=== PATIENT | female | born 1955 | race Caucasian/White ===

== ENCOUNTER 2020-02-24 13:14 | Outpatient (CLI) | payer BC, SELFPAY ==
--- NOTE | ~2020-02-24 | US_ITS ---
EXAMINATION: US pelvic complete w TV EXAM DATE: 02/24/2020 14:15 INDICATION: Postmenopausal bleeding. TECHNIQUE: Pelvic transabdominal and transvaginal sonogram was performed. There are multiple graysca le and Doppler images available for interpretation. There is no prior study for comparison. FINDINGS: Uterus measures 8.1 x 5.3 x 4.3 cm, retroverted with suspicion of significantly thickened endometrium at 37 mm. Possible 1.3 cm fibroid posterior lower uterine segment, ill-defined boundary b etween it and the myometrium. There are nabothian cysts. There is no free pelvic fluid. Right adnexa: The ovary is not identified. There is no adnexal mass. Left adnexa: The ovary measures 2.2 x 2.5 x 2.9 cm, has 2 small cystic regions, largest measuring 1.8 cm. Ovarian vascular flow confirmed. IMPRESSION: Significantly thickened endometrium for postmenopausal status; differential diagnosis inc ludes hyperplasia and endometrial cancer. Recommend histologic correlation. Reviewed, dictated and finalized at location A. IMPRESSION: Significantly thickened endometrium for postmenopausal status; diff erential diagnosis includes hyperplasia and endometrial cancer. Recommend histo logic correlation.
== END 2020-02-24 13:15 | disposition home or self-care (01) ==
LOC: ANHIMG 13:17
PROVIDERS: PCP Internal Medicine; Visit Provider Obstetrics & Gynecology
DX: N95.0 Postmenopausal bleeding (principal); R93.89 Abnormal findings on diagnostic imaging of other specified body structures
CPT/HCPCS: 76830; 76856

== ENCOUNTER 2020-02-27 12:43 | Observation (INO) | payer BC, SELFPAY ==
[2020-02-27] VITALS (32 sets, daily range): BP systolic 103–141; BP diastolic 70–125; PULSE 69–165; RESP 14–24; TEMP 36.5–36.6; O2SAT 95–99; BMI 38.7; BMI 39.1
--- NOTE | ~2020-02-27 | XR_ITS ---
EXAMINATION: XR chest 2V DATE: 02/27/2020 13:40 INDICATION: Tachycardia. TECHNIQUE: Frontal and lateral views of the chest were obtained. COMPARISON: None. FINDINGS: Calcified bilateral lung nodules and calcified hilar and mediastinal lymph nodes are consis tent with old granulomatous disease. No pleural effusion or pneumothorax. The heart size is normal. T here are surgical clips in the abdomen. IMPRESSION: 1. No acute cardiopulmonary disease. Reviewed, dictated and finalized at location B.
--- NOTE | 2020-02-27 12:51 | ECG_ITS ---
Measurements Intervals [place] Rate: 163 P: MS: 0 QRS: -19 QRSD: 103 T: 92 QT: 265 QTc: 438 Interpretive Statements ATRIAL FIBRILLATION WITH RAPID VENTRICULAR RESPONSE DELAYED PRECORDIAL R/S TRANSITION VOLTAGE CRITERIA FOR LVH NONSPECIFIC ST & T-WAVE ABNORMALITY- HIGH LATERAL LEADS BASELINE ARTIFACT- V2 ABNORMAL ECG Electronically Signed On 02-27-2020 14:24:06 CDT by Antoni Gordon D.O.
--- NOTE | 2020-02-27 13:11 | ED.ARRPALP ---
HPI - Arrhythmia/Palpitations General Chief Complaint: Arrhythmia/Palpitations Stated Complaint: tachycardia Time Seen by Provider: 02/27/20 13:02 Source: RN notes reviewed History of Present Illness HPI narrative: Patient presents emergency department from home for rapid heart rate. Patient states he began to notice the symptoms last night that continued today. She states she felt like her heart was racing felt mildly shaky with the symptoms. She denies have any fevers or chills chest pain shortness of breath or any other symptoms. Denies any history of atrial fibrillation or any other cardiac history. Related Data Home Medications Medication Instructions Recorded Confirmed cholecalciferol (vitamin D3) 125 5,000 unit PO DAILY 05/06/19 mcg (5,000 unit) capsule cinnamon bark 500 mg capsule 500 mg PO DAILY 05/06/19 multivitamin 1 tablet PO DAILY 05/06/19 omega 3-avs-pla-fish oil 1,000 mg 1 cap PO DAILY 05/06/19 (120 mg-180 mg) capsule turmeric root extract 500 mg 500 mg PO DAILY 05/06/19 capsule Allergies Allergy/AdvReac Type Severity Reaction Status Date / Time morphine Allergy Mild Unknown Verified 02/27/20 13:08 Tedtovv-Wxc-Rke Reductase Allergy Mild Unknown Verified 02/27/20 13:08 Inhibitor Review of Systems Review of Systems: Narrative: Gen.: Denies fevers or chills ENT: Denies congestion Respiratory: Denies shortness of breath or cough CV: See HPI GI: Denies abdominal pain nausea, emesis or diarrhea Musculoskeletal: Denies back pain or muscle pain Neuro: Denies numbness, tingling, weakness or focal weakness Skin: Denies rash Except as documented, all other systems reviewed and negative [facility] Past Medical History Medical History Hyperlipidemia Knee pain Social History Social History Smoking status: Never smoker Second hand tobacco smoke exposure: No Alcohol intake: current Gender identity (if verbalized by the patient): Female Exam Narrative: Exam Narrative: APPEARANCE: No acute distress, nontoxic, resting in bed EYES: EOMI HEENT: Normocephalic, atraumatic, OMM RESPIRATORY: No respiratory distress Clear to auscultation bilaterally with no rhonchi wheezing or rales. CARDIOVASCULAR: Tachycardic and irregular without murmurs rubs or gallops. ABDOMINAL: Soft, nontender, nondistended, no rebound or guarding MUSCULOSKELETAl: Moves all extremities. No clubbing, cyanosis or edema. NEURO: Awake and alert. Following commands, speech normal, no focal deficits SKIN:: Warm, dry. No rashes lesions or abrasions PSYCHIATRIC: Normal affect/mood, Course Course Emergency Course: Discussed with Dr. Still presentation work-up. Agrees with consult at this time Discussed with NED Clarke for Dr. Noguera presentation work-up. Agrees with admission at this time Discussed with patient and family results of workup and diagnosis. Discussed need for admission. Patient and family understand and agree to current treatment plan Vital Signs Vital signs: Vital Signs Temperature 97.8 F 02/27/20 12:46 Pulse Rate 77 02/27/20 12:46 Respiratory Rate 16 02/27/20 12:46 Blood Pressure 129/83 02/27/20 12:46 Pulse Oximetry 99 02/27/20 12:46 Temperature 97.8 F 02/27/20 12:46 Pulse Rate 114 H 02/27/20 14:53 Respiratory Rate 14 02/27/20 14:53 Blood Pressure 118/97 H 02/27/20 14:53 Pulse Oximetry 96 02/27/20 14:53 MDM - Arrhythmia/Palpitations Lab Data Result diagrams: 02/27/20 13:09 02/27/20 13:09 Labs: Lab Results 02/27/20 02/27/20 02/27/20 Range/Units 13:09 13:09 13:09 WBC 8.2 (4.5-10.0) K/mm3 RBC 4.64 (4.2-5.4) M/mm3 Hgb 14.9 (12.0-15.0) g/dL Hct 43.4 (37.0-47.0) % MCV 93.5 (80-100) fl MCH 32.1 (26-34) pg MCHC 34.3 (32-36) g/dl RDW 13.1 (11.5-14.5) % Plt Count 271 (150-375)
[2020-02-27] MEDS: dilTIAZem HCl INJ 25 MG/5 ML VIAL 10 MG IV PUSH (13:15)
[2020-02-27 13:17] LABS: Basophils Percent Auto 0.5 % (0.2-1.2); Eosinophils Absolute Auto 0.2 K/mm3 (0-0.3); Hematocrit 43.4 % (37.0-47.0); Hemoglobin 14.9 g/dL (12.0-15.0); Immature Granulocyte Absolute 0.02 K/mm3 (0.00-0.031); Immature Granulocyte Percent A 0.2 % (0-0.5); Lymphocytes Absolute Auto 2.81 K/mm3 (0.9-3.2); Lymphocytes Percent Auto 34.3 % (18.3-44.2); Mean Corpuscular HGB Conc 34.3 g/dl (32-36); Mean Corpuscular Hemoglobin 32.1 pg (26-34); Mean Corpuscular Volume 93.5 fl (80-100); Mean Platelet Volume 10.5 fl (7.4-10.4); Monocytes Absolute Auto 0.7 K/mm3 (0.1-0.6); Monocytes Percent Auto 8.2 % (2.6-8.5); Neutrophils Absolute Auto 4.5 K/mm3 (1.3-6.7); Neutrophils Percent Auto 54.8 % (45.5-73.1); Platelet Count Result 271 k/mm3 (150-375); Red Blood Count 4.64 M/mm3 (4.2-5.4); Red Cell Distribution Width 13.1 % (11.5-14.5); White Blood Count 8.2 K/mm3 (4.5-10.0)
[2020-02-27] MEDS: ASPIRIN 81 MG CHEWABLE TABLET 324 MG PO (13:25)
[2020-02-27 13:28] LABS: Prothrombin Time 12.5 Seconds (11.1-14.7)
[2020-02-27 13:29] LABS: Anion Gap 7 mmol/L (8-16); Blood Urea Nitrogen 14 mg/dL (7-17); Calcium 9.2 mg/dL (8.4-10.2); Carbon Dioxide 26 mmol/L (22-30); Chloride 104 mmol/L (98-107); Estimated CRCL calculation 94 ml/min; Estimated Glomerular Filt Rate > 60; Glucose 121 mg/dL (65-105); Potassium 4.4 mmol/L (3.4-5.0); Sodium 137 mmol/L (137-145)
[2020-02-27 13:30] LABS: Partial Thromboplastin Time 26.9 SECONDS (22.3-36.8)
[2020-02-27 13:40] LABS: Troponin I 0.012 ng/mL (0.000-0.034)
[2020-02-27] MEDS: SODIUM CHLORIDE 0.9% IV 1,000 ML 999 ML IV CONT (14:30)
[2020-02-27] MEDS: ENOXAPARIN 100 MG/ML SYRINGE SUB-Q (14:30)
--- NOTE | 2020-02-27 15:15 | PC.NURSE ---
pt amb to bathroom without difficulty
--- NOTE | 2020-02-27 16:37 | ADMIMU ---
This patient, Deedee Howe, was admitted to IMU status, and placed in IMU Room 211-01. Patient/family oriented to hospital policies and general routines including ID bracelet, bed and alarms, visiting hours, pain management, procedures, bathroom and other care routines, personal items, smoking policy, room service/diet, and visiting hours. Valuables list has been completed. Information on how to activate the Rapid Response Team has been discussed. Patient/Family are encouraged to report perceived risks to care and to ask questions if they do not understand what they are told or what they should do.
--- NOTE | 2020-02-27 17:06 | ECG_ITS ---
Measurements Intervals [place] Rate: 71 P: 40 MN: 167 QRS: -18 QRSD: 93 T: 8 QT: 382 QTc: 415 Interpretive Statements SINUS RHYTHM VENTRICULAR PREMATURE COMPLEX NONSPECIFIC T-WAVE ABNORMALITY- INF/LAT LEADS BORDERLINE ECG Electronically Signed On 02-28-2020 7:18:38 CDT by Antoni Gordon D.O.
[2020-02-27 17:10] LABS: Troponin I 0.014 ng/mL (0.000-0.034)
--- NOTE | 2020-02-27 17:14 | PM.CNCAR ---
Assessment and Plan Additional Plan 64-year-old female with: Episode of atrial fibrillation which persisted for about 15-16 hour starting last evening. She was admitted with intravenous diltiazem burning and has just spontaneously converted back to sinus rhythm. Likely etiology of this would be hypertension given her history. After having been converted she is now asymptomatic. I would recommend stopping the IV diltiazem since she has converted. I am going to start her on metoprolol 50 mg daily with the 1st dose this evening. I will systemically anticoagulated with apixaban 5 mg q.12 hours starting this evening. An echocardiogram will be done tomorrow morning if she has no further recurrences of atrial fib she can probably be discharged tomorrow on the beta-curly and the apixaban. Ricky Still MD [facility] History of Present Illness History of Present Illness Consult date/time: date of service:02/27/20 17:14 Consult reason: atrial fibrillation Reason For Visit: Afib with rvr Narrative: This is a 64-year-old woman who I have not seen previously I am seeing this evening at the request of the hospitalist to assist with management of atrial fibrillation. The patient is relatively comfortable at this time and offers no complaints she stated that she suddenly felt strange last evening at about 11:00 p.m. in her home feeling weak and a bit unsteady but not really aware of her heart rate being rapid. She has a history of borderline hypertension but has not been in any medication for it her PCP has been following this and has been trying to decided she needed antihypertensives in the near future. She took her blood pressure at home and noticed that her pulse rate was quite rapid. She mentioned this to her PCP on the telephone who directed her to the emergency department. In the emergency department her electrocardiogram does demonstrate rapid atrial fibrillation. She was of course started on IV diltiazem as she was given an injection of subcu Lovenox 1 milligram/kilogram and admitted to the hospital. In the IMU she is relatively comfortable and sitting there with her . Had a lengthy discussion with the patient and her about atrial fibrillation. Most of this they are well familiar with since her has a history of atrial fibrillation and has been treated by glass products inspector in [place] who is performed 2 ablation is a on him so they are well aware of this type of discussion. She is not known to have any other cardiac problems and states that other than being overweight and mild hypertension she has been enjoying fairly good health. While I was in the room speaking to the patient and discussing all of this patient spontaneously converted to sinus rhythm with heart rate in the 70s. I have requested follow-up 12 lead ECG be done at this time for documentation of this. Review of Systems Constitutional: Constitutional: Reports no additional constitutional complaints Eyes: Eyes: Reports no additional eye complaints ENT: Reports system reviewed and no additional complaints, except as documented Cardiovascular: Cardiovascular: Reports as per HPI and Reports palpitations Respiratory: Respiratory: Reports no additional respiratory complaints Gastrointestinal: Gastrointestinal: Reports no additional gastrointestinal complaints Musculoskeletal: Musculoskeletal: Reports no additional musculoskeletal complaints Integumentary/Breasts: Skin/Breast: Reports system reviewed and no additional complaints, except as docu Neurologic: Reports system reviewed and no additional complaints, except as documented Psychiatric: Psychiatric: Reports no additional psychiatric complaints Hematologic/Lymphatic: Hematologic/Lymphatic: Reports no additional hematologic/lymphatic complaints Allergic/Immunologic: Allergic/Immunologic: Reports no additional allergic/immunologic complaints PMFSH Past Medical History Medical History (Rev
--- NOTE | 2020-02-27 19:02 | ADMGEN ---
This patient, Deedee Howe, was admitted to IMU Room 211-01. Patient/family oriented to hospital policies and general routines including ID bracelet, bed and alarms, visiting hours, pain management, procedures, bathroom and other care routines, personal items, smoking policy, room service/diet, and visiting hours. Valuables list has been completed. Information on how to activate the Rapid Response Team has been discussed. Patient/Family are encouraged to report perceived risks to care and to ask questions if they do not understand what they are told or what they should do.
--- NOTE | 2020-02-27 19:32 | PM.IMHP ---
H&P: HPI History of Present Illness Date/Time: 02/27/20 19:32 Chief complaint: Afib with rvr Narrative: This is a pleasant 64 year old morbidly obese female with known history of hyperlipidemia and untreated HTN who presented to the hospital today with a complaint of a rapid heart rate. She first noticed last night that she wasn't feeling well and decided to go to bed. She woke up today and continued to feel uneasy and shaky. She decided to check her heart rhythm using her husbands phone as he is known to have atrial fibrillation and found that her heart rate was in the 160s. She called her PCP who advised her to come to the hospital. The patient denies any shortness of breath or chest pain. She also denies any fever, chills, coughing, nausea, vomiting, dysuria, hematuria, diarrhea, rectal bleeding, LE swelling or LE pain. She was subsequently found to be in rapid atrial fibrillation and started on Cardizem IV for rate control in the ER. Cardiology was consulted by ER provider. While on the IMU the patient converted back to a sinus rhythm. On my encounter with the patient she currently is asymptomatic and has no complaints. She denies any history of heart disease or arryhthmias. Review of Systems Review of Systems: All systems reviewed & are unremarkable except as noted in HPI and below PMFSH Past Medical History Medical History HTN (hypertension) with goal to be determined Hyperlipidemia Knee pain Surgical History Surgical History History of appendectomy History of History of cholecystectomy Family History Family History Mother Cerebrovascular accident Family history of Alzheimer's disease Diabetes mellitus Family history of malignant neoplasm of breast in first degree relative Sibling Family history of Parkinson's disease Grandparent Diabetes mellitus Sibling Parkinsons disease Social History Social History Smoking status: Never smoker Second hand tobacco smoke exposure: No Alcohol intake: current Drinks per week: 1 Substance use: never Gender identity (if verbalized by the patient): Female Spiritual care concerns: Yes (Evangelical) Meds Home Medications and Allergies Home Medications Medication Instructions Recorded Confirmed Type cholecalciferol (vitamin D3) 125 5,000 unit PO DAILY 05/06/19 02/27/20 History mcg (5,000 unit) capsule cinnamon bark 500 mg capsule 500 mg PO DAILY 05/06/19 02/27/20 History multivitamin 1 tablet PO DAILY 05/06/19 02/27/20 History omega 3-eto-ayc-fish oil 1,000 mg 1 cap PO DAILY 05/06/19 02/27/20 History (120 mg-180 mg) capsule turmeric root extract 500 mg 500 mg PO DAILY 05/06/19 02/27/20 History capsule Allergies Allergy/AdvReac Type Severity Reaction Status Date / Time morphine Allergy Mild Unknown Verified 02/27/20 13:08 Xedopml-Yzp-Mnm Reductase Allergy Mild Unknown Verified 02/27/20 13:08 Inhibitor Vital Signs Vital Signs - 24 hr 02/27/20 12:46 02/27/20 13:13 02/27/20 13:15 Temperature 36.6 C Pulse Rate 77 148 H 164 H Respiratory Rate 16 20 17 Blood Pressure 129/83 138/102 H Pulse Oximetry 99 97 02/27/20 13:16 02/27/20 13:30 02/27/20 13:31 Temperature Pulse Rate 117 H 111 H 134 H Respiratory Rate 16 17 24 H Blood Pressure 141/125 H 118/81 Pulse Oximetry 96 95 02/27/20 13:45 02/27/20 14:00 02/27/20 14:15 Temperature Pulse Rate 147 H 133 H 134 H Respiratory Rate 14 15 21 H Blood Pressure 115/76 Pulse Oximetry 98 97 97 02/27/20 14:16 02/27/20 14:17 02/27/20 14:24 Temperature Pulse Rate 120 H 126 H 126 H Respiratory Rate 22 H 16 Blood Pressure 103/85 103/85 Pulse Oximetry 97 98 02/27/20 14:30 02/27/20 14:45 02/27/20 14:47 Temperature
[2020-02-27 20:24] LABS: Troponin I 0.013 ng/mL (0.000-0.034)
[2020-02-27] MEDS: METOPROLOL SUCCINATE EXT REL 50 MG TABCR PO (21:39)
[2020-02-27] MEDS: APIXABAN 5 MG TABLET PO (21:39)
[2020-02-28] VITALS (9 sets, daily range): BP systolic 102–137; BP diastolic 55–74; PULSE 60–76; RESP 16–99; TEMP 36.1–36.6; O2SAT 16–99
--- NOTE | 2020-02-28 | ECHO_ITS ---
Patient Info Name: Deedee Howe Age: 64 years : 1955 Gender: Female Ht: 64 in Wt: 225 lbs BSA: 2.20 m2 HR: 68 bpm BP: 119 / 72 mmHg Heart Rhythm: Sinus Rhythm Technical Quality: Good Exam Date: 02/28/2020 10:23 AM Exam Location: [facility] Pulmonary Exam Room: [facility] Patient Status: Outpatient Admit Date: 02/27/2020 Staff Ordering Physician: Ricky Still MD Sanitation Laborer: Odette Barba RCS Attending Provider: Lenore Rios PA-C Referring Physician: Tessy FREITAS; Exam Type: CA echo doppler color flow Study Info Indications - AFIB Complete two-dimensional, color flow and Doppler transthoracic echocardiogram is performed. Summary 1. Complete two-dimensional, color flow and Doppler transthoracic echocardiogram is performed. 2. Normal left ventricular size and function, with no segmental wall motion abnormalities. The ejection fraction is measured 61%. Normal diastolic function. 3. Left atrial chamber dimension is mildly enlarged. 4. There is mild tricuspid valve regurgitation. 5. There is mild pulmonic regurgitation. 6. Borderline pulmonary hypertension, estimated pulmonary arterial systolic pressure is 33-38 mmHg. 7. Normal sinus rhythm. Left Ventricle Left ventricular chamber dimension is normal. Left ventricular systolic function is normal, estimated at 60-65%. There is no increased left ventricular wall thickness. Left ventricular septal wall motion is normal. The left ventricular diastolic function is normal. Right Ventricle Right ventricular chamber dimension is normal. Right ventricular systolic function is normal. Left Atria Left atrial chamber dimension is mildly enlarged. Right Atria Right atrial chamber dimension is normal. Aortic Valve The aortic valve is trileaflet. There is no aortic valve sclerosis. There is no aortic valve stenosis. There is no aortic valve regurgitation. Pulmonic Valve The pulmonic valve is normal. There is no pulmonic valve stenosis. There is mild pulmonic regurgitation. Mitral Valve The mitral valve has normal leaflets. There is no mitral valve stenosis. There is no mitral valve regurgitation. Tricuspid Valve The tricuspid valve leaflets are normal. There is no significant tricuspid valve stenosis. There is mild tricuspid valve regurgitation. Borderline pulmonary hypertension, estimated pulmonary arterial systolic pressure is 33-38 mmHg. Pericardium/Pleural The pericardium appears normal. There is no pericardial effusion. Inferior Vena Cava Normal inferior vena cava with >50% collapse upon inspiration consistent with Empty right atrial pressure, 10 mmHg. Aorta The aortic root size at the sinus of Valsalva is normal. The prox ascending aorta size is normal. Left Ventricular Outflow Tract Name Value Normal LVOT 2D LVOT Diameter 2.0 cm LVOT Doppler LVOT Peak Gradient 5 mmHg LVOT Mean Gradient 2 mmHg LVOT VTI 24 cm LVOT VTI/AV VTI Ratio 1.0 LVOT
[2020-02-28 05:23] LABS: Basophils Percent Auto 0.6 % (0.2-1.2); Eosinophils Absolute Auto 0.2 K/mm3 (0-0.3); Eosinophils Percent Auto 3.7 % (0-4.4); Hematocrit 37.1 % (37.0-47.0); Hemoglobin 12.6 g/dL (12.0-15.0); Immature Granulocyte Absolute 0.01 K/mm3 (0.00-0.031); Immature Granulocyte Percent A 0.2 % (0-0.5); Lymphocytes Absolute Auto 2.54 K/mm3 (0.9-3.2); Lymphocytes Percent Auto 47.2 % (18.3-44.2); Mean Corpuscular Hemoglobin 32.2 pg (26-34); Mean Corpuscular Volume 94.9 fl (80-100); Mean Platelet Volume 10.6 fl (7.4-10.4); Monocytes Absolute Auto 0.4 K/mm3 (0.1-0.6); Monocytes Percent Auto 7.8 % (2.6-8.5); Neutrophils Absolute Auto 2.2 K/mm3 (1.3-6.7); Neutrophils Percent Auto 40.5 % (45.5-73.1); Platelet Count Result 216 k/mm3 (150-375); Red Blood Count 3.91 M/mm3 (4.2-5.4); Red Cell Distribution Width 13.2 % (11.5-14.5); White Blood Count 5.4 K/mm3 (4.5-10.0)
[2020-02-28 05:37] LABS: Anion Gap 4 mmol/L (8-16); Blood Urea Nitrogen 14 mg/dL (7-17); Calcium 8.1 mg/dL (8.4-10.2); Carbon Dioxide 28 mmol/L (22-30); Chloride 104 mmol/L (98-107); Estimated CRCL calculation 93 ml/min; Estimated Glomerular Filt Rate > 60; Glucose 97 mg/dL (65-105); Potassium 4.2 mmol/L (3.4-5.0); Sodium 136 mmol/L (137-145)
[2020-02-28] MEDS: APIXABAN 5 MG TABLET PO (08:56)
[2020-02-28] MEDS: MULTIVITAMINS THERAPEUTIC TAB (*BKC) 1 TABLET PO (08:57)
[2020-02-28] MEDS: CHOLECALCIFEROL 1,000 UNITS TABLET 5000 UNITS PO (08:57)
[2020-02-28] MEDS: OMEGA 3 POLYUNSAT FATTY ACIDS 1 GM CAP PO (08:57)
--- NOTE | 2020-02-28 10:56 | PM.PNCARD ---
Progress Note: A&P Assessment and Plan (1) Paroxysmal atrial fibrillation: Code(s): I48.0 - Paroxysmal atrial fibrillation Status: Acute Assessment and Plan: new onset of paroxysmal AFib RVR, probably secondary to hypertension, maintaining NSR with metoprolol. Anticoagulated with Eliquis. Echo: Not yet downloaded to read Counseled patient and about atrial fibrillation, risk of recurrence, risk of cardioembolic events etc.. Discussed anticoagulation, benefits and risks. OK for discharge from my point of view, with metoprolol and Eliquis. I will ask my office to call pt re: her Echo results when available and will set up a FU appointment. (2) HTN (hypertension) with goal to be determined: Code(s): I10 - Essential (primary) hypertension Status: Chronic Assessment and Plan: Blood pressure at goal. Subjective Date/time seen: 02/28/20 10:56 Follow-up for paroxysmal atrial fibrillation. Date of service 02/28/2020: Converted to NSR with IV Cardizem yesterday, change to p.o. metoprolol and Eliquis. Has remained in NSR heart rate dropping to 50 at night but currently in the 60s. The patient feels well and is eager for discharge. Review of Systems Constitutional: Constitutional: Reports no additional constitutional complaints ENT: Denies epistaxis Cardiovascular: Cardiovascular: Denies chest pain, Denies leg edema, Denies lightheadedness and Denies palpitations Respiratory: Respiratory: Denies dyspnea Gastrointestinal: Gastrointestinal: Denies abdominal pain and Denies hematochezia Genitourinary: Genitourinary: Denies hematuria Musculoskeletal: Musculoskeletal: Reports no additional musculoskeletal complaints Integumentary/Breasts: Skin/Breast: Denies rash Exam Narrative: Exam Narrative: Pleasant lady, at bedside Const: General: comfortable and no acute distress HENMT: General nose exam: no epistaxis Eyes: EOM: EOMs intact bilaterally Neck: Neck: supple Thyroid: thyroid normal Resp: Effort & Inspection: normal respiratory effort Auscultation: clear to auscultation bilaterally Cardio: Rhythm: regular rhythm Heart sounds: no murmurs GI: Inspection: non-distended Skin: General skin exam: no rashes or lesions noted Neuro: Speech: normal speech Motor exam (neuro): Normal motor muscle tone present throughout Extrem: General: no pedal edema Psych: Mental Status: mental status grossly normal Affect: normal affect Objective Data Vital Signs Vital Signs: Vital Signs - 24 hr 02/27/20 12:46 02/27/20 13:13 02/27/20 13:15 Temperature 97.8 F Pulse Rate 77 148 H 164 H Respiratory Rate 16 20 17 Blood Pressure 129/83 138/102 H Pulse Oximetry 99 97 02/27/20 13:16 02/27/20 13:30 02/27/20 13:31 Temperature Pulse Rate 117 H 111 H 134 H Respiratory Rate 16 17 24 H Blood Pressure 141/125 H 118/81 Pulse Oximetry 96 95 02/27/20 13:45 02/27/20 14:00 02/27/20 14:15 Temperature Pulse Rate 147 H 133 H 134 H Respiratory Rate 14 15 21 H Blood Pressure 115/76 Pulse Oximetry 98 97 97 02/27/20 14:16 02/27/20 14:17 02/27/20 14:24 Temperature Pulse Rate 120 H 126 H 126 H Respiratory Rate 22 H 16 Blood Pressure 103/85 103/85 Pulse Oximetry 97 98 02/27/20 14:30 02/27/20 14:45 02/27/20 14:47 Temperature Pulse Rate 142 H 122 H 126 H Respiratory Rate 17 17 15 Blood Pressure Pulse Oximetry 98 98 97 02/27/20 14:53 02/27/20 14:54 02/27/20 15:00 Temperature Pulse Rate 114 H 94 93 Respiratory Rate 14 24 H 18 Blood Pressure 118/97 H Pulse Oximetry 96 97 99 02/27/20 15:01 02/27/20 15:15 02/27/20 15:16 Temperature Pulse Rate 105 H 98 Respiratory Rate 16 16 Blood Pressure 118/86 126/75 Pulse Oximetry 97 98 97 02/27/20 15:44 02/27/20 15:45 02/27/20 16:00 Temperature Pulse Rate 124 H 119 H 148 H Respirato
[2020-02-28] MEDS: METOPROLOL SUCCINATE EXT REL 50 MG TABCR PO (11:25)
--- NOTE | 2020-02-28 11:43 | PM.DS ---
DS: Admitting Diagnosis Admitting Diagnosis Admitting Diagnosis: Afib with rvr DS: Discharge Diagnosis Discharge Diagnosis (1) Atrial fibrillation with rapid ventricular response: Code(s): I48.91 - Unspecified atrial fibrillation Status: Acute Assessment and Plan: Discharge Summary (Date of service 02/28/20): Mrs. Howe is a 64 y.o. female with PMH significant for hyperlipidemia and untreated hypertension who presented to the emergency department for the evaluation of rapid heart rate. She reports that she did not feel well upon awakening. She checked her heart rate with her 's phone which showed it was in the 160s. Initial workup in the emergency department was notable for EKG showing atrial fibrillation with RVR. Cardizem gtt was initiated and she converted to normal sinus rhythm. CHADSVAsc score was 2 and she was anticoagulated with eliquis. PO metoprolol was initiated and she maintained normal sinus rhythm with adequate heart rate and blood pressure. TSH was normal at 2.88 and echocardiogram demonstrated normal LV systolic function EF 61%, normal diastolic function, mild left atrial enlargement, mild tricuspid regurgitation, mild pulmonic regurgitation, and borderline pulmonary hypertension. Her atrial fibrillation was likely due to untreated hypertension. She felt much better and requested to go home. She was discharged in stable condition on the morning of 02/28/20. She was advised to monitor heart rate and blood pressure and follow-up outpatient with cardiology. (2) HTN (hypertension) with goal to be determined: Code(s): I10 - Essential (primary) hypertension Status: Chronic Assessment and Plan: Blood pressures were reviewed and well-controlled. Metoprolol was added for rate control due to new-onset atrial fibrillation. (3) Hyperlipidemia: Qualifiers: Hyperlipidemia type: unspecified Qualified Code(s): E78.5 - Hyperlipidemia, unspecified Code(s): E78.5 - Hyperlipidemia, unspecified Status: Chronic Assessment and Plan: [place]-3 fish oil was continued. She unfortunately has intolerance to statins. DS: Summary Hospital Course Reason for hospitalization: Rapid heart rate/ atrial fibrillation w RVR Hospital Course: As above. Status at Discharge Functional status at discharge: independent ambulation Overall status at discharge: patient is back to baseline Time Spent with Patient Time attestation: Total time spent providing and/or coordinating discharge services: 25 minutes Exam Narrative: Exam Narrative: Vitals at presentation: Temp Pulse Resp BP Pulse Ox 97.8 F 77 16 129/83 99 02/27/20 12:46 02/27/20 12:46 02/27/20 12:46 02/27/20 12:46 02/27/20 12:46 Vitals at discharge: Temp Pulse Resp BP Pulse Ox 97 F L 62 16 130/74 97 02/28/20 12:00 02/28/20 12:00 02/28/20 12:00 02/28/20 12:00 02/28/20 12:00 General: Obese, well-developed 64 y.o. female sitting up in bed in no acute distress. HEENT: Normocephalic and atraumatic. Oral mucosa moist. Neck: Supple. Cardiac: Regular rate and rhythm. S1 and S2 normal. Telemetry reviewed from 02/27 with sinus rhythm . Lungs: Lungs are clear to auscultation bilaterally. Abdomen: Normoactive bowel sounds. Abdomen is soft, non-distended, non-tender. Extremities: Lower extremities without edema. No calf tenderness. DP and PT 2+. Neurological: Alert. No focal neurological deficits noted to casual conversation. Speech is clear. Skin: Warm and dry. Psychiatric: Judgment and insight intact. Pleasant mood and appropriate affect. DS: Data Data Completed and Pending Completed studies during hospitalization: Echocardiogram (02/28/20)
== END 2020-02-28 12:28 | disposition home or self-care (01) ==
LOC: ANHED 13:25 → ANHIMU 14:47
PROVIDERS: Emergency Medicine; Family Medicine; Admitting Provider Internal Medicine; Emergency Provider Emergency Medicine; PCP Internal Medicine; Visit Provider Physician Assistant
DX: I48.0 Paroxysmal atrial fibrillation (principal); I10 Essential (primary) hypertension; E78.5 Hyperlipidemia, unspecified; Z79.899 Other long term (current) drug therapy
CPT/HCPCS: 36415; 71046; 80048; 84443; 84484; 85025; 85610; 85730; 93005; 93306; 96365; 96366; 96372; 99285; A9270; G0378; J1650; J7030

== ENCOUNTER 2020-03-31 09:37 | Outpatient (CLI) | payer BC, SELFPAY ==
[2020-03-31 12:08] LABS: Basophils Percent Auto 0.7 % (0.2-1.2); Eosinophils Absolute Auto 0.2 K/mm3 (0-0.3); Eosinophils Percent Auto 2.7 % (0-4.4); Hematocrit 39.2 % (37.0-47.0); Hemoglobin 13.5 g/dL (12.0-15.0); Immature Granulocyte Absolute 0.01 K/mm3 (0.00-0.031); Immature Granulocyte Percent A 0.2 % (0-0.5); Lymphocytes Absolute Auto 2.43 K/mm3 (0.9-3.2); Lymphocytes Percent Auto 41.3 % (18.3-44.2); Mean Corpuscular HGB Conc 34.4 g/dl (32-36); Mean Corpuscular Hemoglobin 32.7 pg (26-34); Mean Corpuscular Volume 94.9 fl (80-100); Mean Platelet Volume 10.3 fl (7.4-10.4); Monocytes Absolute Auto 0.5 K/mm3 (0.1-0.6); Monocytes Percent Auto 8.3 % (2.6-8.5); Neutrophils Absolute Auto 2.8 K/mm3 (1.3-6.7); Neutrophils Percent Auto 46.8 % (45.5-73.1); Platelet Count Result 237 k/mm3 (150-375); Red Blood Count 4.13 M/mm3 (4.2-5.4); Red Cell Distribution Width 12.8 % (11.5-14.5); White Blood Count 5.9 K/mm3 (4.5-10.0)
[2020-03-31 12:23] LABS: Alanine Aminotransferase 30 U/L (4-35); Albumin Level 4.3 g/dL (3.5-5.1); Alkaline Phosphatase 71 U/L (38-126); Anion Gap 6 mmol/L (8-16); Aspartate Amino Transferase 27 U/L (14-36); Bilirubin,Total 0.5 mg/dL (0.2-1.3); Blood Urea Nitrogen 13 mg/dL (7-17); Carbon Dioxide 30 mmol/L (22-30); Chloride 103 mmol/L (98-107); Estimated Glomerular Filt Rate > 60; Glucose 100 mg/dL (65-105); Potassium 4.5 mmol/L (3.4-5.0); Sodium 139 mmol/L (137-145)
== END 2020-03-31 09:38 | disposition home or self-care (01) ==
PROVIDERS: PCP Internal Medicine; Visit Provider Obstetrics & Gynecology Gynecologic Oncology
DX: C54.1 Malignant neoplasm of endometrium (principal)
CPT/HCPCS: 36415; 80053; 85025

== ENCOUNTER 2020-06-05 06:45 | Outpatient (NON) | payer BC, SELFPAY ==
[2020-06-05 23:31] LABS: SARS-CoV-2 RNA PCR Negative
== END 2020-06-05 06:46 ==
PROVIDERS: PCP Internal Medicine
DX: Z20.828 Contact with and (suspected) exposure to other viral communicable diseases (principal); R09.89 Other specified symptoms and signs involving the circulatory and respiratory systems
CPT/HCPCS: 87635; C9803; U0003

== ENCOUNTER 2024-05-09 01:53 | Day surgery (SDC) | payer MEDICARE, OTHER, SELFPAY ==
[2024-05-01 12:59] VITALS: BMI 43.3
[2024-05-09 06:11] VITALS: BP 177/85; PULSE 77; RESP 16; TEMP 36.6; O2SAT 100
[2024-05-09] MEDS: LACTATED RINGERS 1,000 ML 150 ML IV CONT (06:29)
--- NOTE | 2024-05-09 07:07 | P.PNAN_ITS ---
Anes - Initial Pre Proc Eval Procedure: Operation Date: 05/09/24 07:30 Proposed Procedures p Screening Colonoscopy - Santino Tucker MD Date/Time: 05/09/24 07:07 Surgeon: Santino Tucker MD Pre Op Diagnosis: neoplasm screening Patient Data Age: 68 Gender: F Height: 1.6 m Weight: 109.4 kg Last Vital Signs Temp 36.6 C 05/09/24 06:11 Pulse 77 05/09/24 06:11 Resp 16 05/09/24 06:11 BP 177/85 H 05/09/24 06:11 Pulse Ox 100 05/09/24 06:11 O2 Del Method Room Air 05/09/24 06:11 Allergies Allergy/AdvReac Type Severity Reaction Status Date / Time morphine Allergy Mild Unknown Verified 05/09/24 06:10 Uvnkcwy-HVI-LwK Reductase Allergy Mild Unknown Verified 05/09/24 06:10 Inhibitor [Kompeyz-Tlh-Abu Reductase Inhibitor] Home Medications Medication Instructions Recorded Confirmed Type cholecalciferol (vitamin D3) 125 5,000 unit PO DAILY 05/06/19 05/09/24 History mcg (5,000 unit) capsule multivitamin (Daily Multi-Vitamin 1 tablet PO DAILY 05/06/19 05/09/24 History tablet) omega 2-dyh-cif-fish oil 1,000 mg 2 cap PO DAILY 05/06/19 05/09/24 History (120 mg-180 mg) capsule (Fish Oil) metoprolol succinate 50 mg 50 mg PO DAILY #30 tabs 02/28/20 05/09/24 Rx tablet,extended release 24 hr vit C 250 mg-vit E 90 mg-zinc 40 1 tablet PO DAILY 03/02/20 05/09/24 History mg-copper 1 fu-atsviz-ofjakr capsule (PreserVision AREDS-2) cinnamon bark 500 mg capsule 2,000 mg PO DAILY 12/21/23 05/09/24 History tumeric 2 tab-cap PO DAILY 12/21/23 05/09/24 History niacin 50 mg tablet 500 mg PO DAILY 04/10/24 05/09/24 History Patient hx anesthesia problems: none Family hx anesthesia problems: none Results Review: All pre-operative results and documents have been reviewed as part of the pre- operative evaluation. [facility] Past Medical History Medical History COVID-19 Endometrial cancer HTN (hypertension) with goal to be determined Hyperlipidemia Knee pain Paroxysmal atrial fibrillation Surgical History Surgical History H/O: hysterectomy History of appendectomy History of History of cholecystectomy History of colonoscopy with polypectomy Knee joint replacement status Family History Family History Mother Cerebrovascular accident Family history of Alzheimer's disease Diabetes mellitus Family history of malignant neoplasm of breast in first degree relative Sibling Family history of Parkinson's disease Grandparent Diabetes mellitus Sibling Parkinsons disease Social History Social History Smoking status: Never smoker Second hand tobacco smoke exposure: No Alcohol intake: current Drinks per week: 3 Substance use: never Lack of Transportation: No Lack of Food: Never True Current Housing: I Have Housing Concerned About Future Housing: No Difficulty Paying Gas/Electric Bills: No Difficulty Paying for Meds: No Currently Unemployed: No Education: Master's Degree or Higher Difficulty w/ Childcare or Family Care: No Living arrangements: with family Gender identity (if verbalized by the patient): Female Spiritual care concerns: No Anes - Eval Final PreProcedure Day of Procedure 05/09/24 07:07 Patient weight: morbidly obese Heart: regular rate and rhythm Lungs: clear to auscultation Airway: Mallampati scale class II Neurological: alert and oriented Last oral intake: >/= 8 hours ASA classification: III Emergent: no Anesthetic plan: proceed Anesthesia type and monitoring: general GIVS and standard monitoring Results Review: All pre-operative results and documents have been reviewed as part of the pre- operative evaluation. Informed Consent: The patient's anesthetic plan and its attendant risks and benefits were discussed with the patient/family/POA. Questions were solicited and answers provided to the satisfaction of the patient/family/POA.
--- NOTE | 2024-05-09 07:28 | PM.IMHP ---
H&P: HPI History of Present Illness Date/Time: 05/09/24 07:28 Chief Complaint: Screening colonoscopy Narrative: This is the patient's 3rd colonoscopy after 10 years. There are no GI symptoms and there is no family history of colorectal cancer. Review of Systems Review of Systems: All systems reviewed & are unremarkable except as noted in HPI and below PMFSH Past Medical History Medical History COVID-19 Endometrial cancer HTN (hypertension) with goal to be determined Hyperlipidemia Knee pain Paroxysmal atrial fibrillation Surgical History Surgical History H/O: hysterectomy History of appendectomy History of History of cholecystectomy History of colonoscopy with polypectomy Knee joint replacement status Family History Family History Mother Cerebrovascular accident Family history of Alzheimer's disease Diabetes mellitus Family history of malignant neoplasm of breast in first degree relative Sibling Family history of Parkinson's disease Grandparent Diabetes mellitus Sibling Parkinsons disease Social History Social History Smoking status: Never smoker Second hand tobacco smoke exposure: No Alcohol intake: current Drinks per week: 3 Substance use: never Lack of Transportation: No Lack of Food: Never True Current Housing: I Have Housing Concerned About Future Housing: No Difficulty Paying Gas/Electric Bills: No Difficulty Paying for Meds: No Currently Unemployed: No Education: Master's Degree or Higher Difficulty w/ Childcare or Family Care: No Living arrangements: with family Gender identity (if verbalized by the patient): Female Spiritual care concerns: No Meds Home Medications and Allergies Home Medications Medication Instructions Recorded Confirmed Type cholecalciferol (vitamin D3) 125 5,000 unit PO DAILY 05/06/19 05/09/24 History mcg (5,000 unit) capsule multivitamin (Daily Multi-Vitamin 1 tablet PO DAILY 05/06/19 05/09/24 History tablet) omega 6-jwe-vww-fish oil 1,000 mg 2 cap PO DAILY 05/06/19 05/09/24 History (120 mg-180 mg) capsule (Fish Oil) metoprolol succinate 50 mg 50 mg PO DAILY #30 tabs 02/28/20 05/09/24 Rx tablet,extended release 24 hr vit C 250 mg-vit E 90 mg-zinc 40 1 tablet PO DAILY 03/02/20 05/09/24 History mg-copper 1 up-lxsbjn-adcucb capsule (PreserVision AREDS-2) cinnamon bark 500 mg capsule 2,000 mg PO DAILY 12/21/23 05/09/24 History tumeric 2 tab-cap PO DAILY 12/21/23 05/09/24 History niacin 50 mg tablet 500 mg PO DAILY 04/10/24 05/09/24 History Allergies Allergy/AdvReac Type Severity Reaction Status Date / Time morphine Allergy Mild Unknown Verified 05/09/24 06:10 Dihibjf-GGZ-AiD Reductase Allergy Mild Unknown Verified 05/09/24 06:10 Inhibitor [Rprtbkc-Bdt-Czv Reductase Inhibitor] Vital Signs Vital Signs - 24 hr 05/09/24 06:11 Temperature 97.9 F Pulse Rate 77 Respiratory Rate 16 Blood Pressure 177/85 H Pulse Oximetry 100 Oxygen Delivery Room Air Exam Const: General: cooperative and healthy appearing Resp: Effort & Inspection: normal respiratory effort and able to speak in complete sentences Auscultation: clear to auscultation bilaterally Cardio: Rate: regular rate Rhythm: regular rhythm GI: Inspection: normal to inspection GI Palp: No No hepatosplenomegaly present Auscultation: normal bowel sounds Rectal Exam: deferred Skin: General skin exam: normal color Psych: Appearance: grossly normal Mental Status: mental status grossly normal Assessment and Plan Assessment and plan (1) Screening for colon cancer: Code(s): Z12.11 - Encounter for screening for malignant neoplasm of colon Status: Acute Assessment and Plan: The patient is deemed a good candidate for the procedure. Consent signed. Will proceed.
[2024-05-09 07:50] VITALS: BP 113/67; PULSE 67; RESP 20; O2SAT 96
[2024-05-09 08:00] VITALS: BP 138/78; PULSE 67; RESP 20; O2SAT 99
[2024-05-09 08:10] VITALS: BP 137/83; PULSE 64; RESP 15; O2SAT 100
== END 2024-05-09 08:19 | disposition home or self-care (01) ==
PROVIDERS: PCP Nurse Practitioner; Referring Provider Obstetrics & Gynecology; Visit Provider Internal Medicine Gastroenterology
PROC: 0DJD8ZZ Inspection of Lower Intestinal Tract, Via Natural or Artificial Opening Endoscopic (ICD-10-PCS; CPT 45378; principal; 2024-05-09 07:30)
DX: Z12.11 Encounter for screening for malignant neoplasm of colon (principal); K64.8 Other hemorrhoids; K57.30 Diverticulosis of large intestine without perforation or abscess without bleeding; I10 Essential (primary) hypertension; E78.5 Hyperlipidemia, unspecified; I48.0 Paroxysmal atrial fibrillation; E66.01 Morbid (severe) obesity due to excess calories; Z68.41 Body mass index [BMI] 40.0-44.9, adult; Z98.890 Other specified postprocedural states; Z90.49 Acquired absence of other specified parts of digestive tract; Z85.42 Personal history of malignant neoplasm of other parts of uterus; Z80.3 Family history of malignant neoplasm of breast; Z82.49 Family history of ischemic heart disease and other diseases of the circulatory system
CPT/HCPCS: G0105; J2003; J2704; J7120